=== PATIENT | female | born 1995 | race Caucasian/White ===

== ENCOUNTER 2019-07-02 09:51 | Outpatient (CLI) | payer OTHER ==
[~2019-07-02] VITALS: Ht 162.6 cm; Wt 113.7 kg
[2019-07-02 10:10] VITALS: BP 120/63
[2019-07-02] MEDS ORDERED: MAPA500T2 PO (10:29)
[2019-07-02] MEDS ORDERED: VALT1TAB PO (10:29)
[2019-07-02] MEDS ORDERED: PRENTAB9 PO (10:29)
== END 2019-07-02 11:57 | disposition home or self-care (01) ==
LOC: M LDO 09:51
PROVIDERS: ATTEND Obstetrics & Gynecology
DX: O99.89 Other specified diseases and conditions complicating pregnancy, childbirth and the puerperium (principal); R20.8 Other disturbances of skin sensation; Z3A.37 37 weeks gestation of pregnancy
CPT/HCPCS: 59025; G0378; G0463

== ENCOUNTER 2019-07-19 07:33 | Inpatient (IN) | payer OTHER ==
[~2019-07-19] VITALS: Ht 162.6 cm; Wt 115.5 kg
[2019-07-19] VITALS (20 sets, daily range): BP systolic 89–132; BP diastolic 51–86
[~2019-07-19 07:33] MED LIST: MAPA500T2 PO; PRENTAB9 PO; VALT1TAB PO
[2019-07-19] MEDS ORDERED: BICITRA 30ML SOLN UDC PO ONE ×2 (08:00→09:15)
[2019-07-19] MEDS ORDERED: LR 1,000 ML IV ONE (08:00)
[2019-07-19] MEDS ORDERED: ceFAZolin SOD 2 GM in IV 1 EA IV ONE ×2 (08:00→09:15)
[2019-07-19 08:54] LABS: HEMOGLOBIN 11.7 g/dl (12.0-15.5); MEAN CORPUSCULAR HGB CONC 34.4 g/dl (32.0-36.5); MEAN CORPUSCULAR VOLUME 87.2 fl (80.0-96.0); PLATELET COUNT, AUTOMATED 176 10^3/uL (150-450); WHITE BLOOD COUNT 6.4 10^3/uL (4.0-10.0)
[2019-07-19] MEDS: PRENATAL VITAMINS CHEWABLE TABLET PO SCH (09:00)
[2019-07-19] MEDS ORDERED: LACTATED RINGER'S 1000 ML IV STA (09:02)
[2019-07-19] MEDS ORDERED: MORPHINE PRES-FREE INJ 10 MG/10 ML VIAL (J2274) As Ordered ONE (09:11)
[2019-07-19] MEDS ORDERED: OXYTOCIN INJ 10 UNITS/ML VIAL (J2590) As Ordered ONE ×2 (09:11→09:16)
[2019-07-19] MEDS ORDERED: NALOXONE INJ 0.4 MG/1 ML VIAL (J2310) IV PRN ×2 (09:31)
[2019-07-19] MEDS ORDERED: diphenhydrAMINE INJ 50MG/ML VIAL (J1200) IV PRN (09:31)
[2019-07-19] MEDS ORDERED: METOCLOPRAMIDE INJ 10MG/2ML VIAL (J2765) IV PRN (09:31)
[2019-07-19] MEDS ORDERED: NALBUPHINE HCL 10 MG/ML AMP (J2300) IV PRN ×2 (09:31→11:15)
[2019-07-19] MEDS ORDERED: ONDANSETRON 4MG/2ML VIAL (J2405) IV PRN ×2 (09:31→11:15)
[2019-07-19] MEDS ORDERED: PHENYLephrine HCL 500 MCG/5 ML (100MCG/ML) SYRINGE (J2370) As Ordered ONE (09:37)
[2019-07-19] MEDS ORDERED: ePHEDrine SULFATE 25 MG/5 ML(5MG/ML) SYRINGE As Ordered ONE (09:39)
[2019-07-19] MEDS ORDERED: PROMETHAZINE 25 MG TAB PO PRN (11:00)
[2019-07-19] MEDS ORDERED: PERCOCET 5MG/325MG TAB PO PRN ×2 (11:00→11:15)
[2019-07-19] MEDS ORDERED: RHOGAM 300 MCG (1500 IU) INJ (J2790) IM SCH (11:00)
[2019-07-19] MEDS ORDERED: MEASLES,MUMPS,RUBELLA VACCINE INJ (MMR-II) (90707) SC SCH (11:00)
[2019-07-19] MEDS ORDERED: fentaNYL 100 MCG/2 ML INJECTION (J3010) IV PRN (11:15)
[2019-07-19] MEDS ORDERED: MEPERIDINE INJ 25 MG/ML VIAL (J2175) IV PRN (11:15)
[2019-07-19] MEDS ORDERED: KETOROLAC 30 MG/ML VIAL (J1885) IV PRN (11:15)
[2019-07-19] MEDS ORDERED: ONDANSETRON 4MG/2ML VIAL (J2405) As Ordered ONE (11:22)
[2019-07-19] MEDS ORDERED: KETOROLAC 30 MG/ML VIAL (J1885) As Ordered ONE (11:30)
[2019-07-19] MEDS: LR 1,000 ML IV SCH ×2 (13:24→21:45)
[2019-07-19] MEDS: KETOROLAC 30 MG/ML VIAL (J1885) IV SCH ×2 (16:55→23:18)
[2019-07-19] MEDS: ENOXAPARIN 60 MG/0.6 ML SYR (J1650) SC SCH (16:56)
[2019-07-20 02:00] VITALS: BP 110/57
[2019-07-20] MEDS: KETOROLAC 30 MG/ML VIAL (J1885) IV SCH (05:31)
[2019-07-20 05:50] VITALS: BP 119/60
[2019-07-20 07:36] LABS: HEMOGLOBIN 10.8 g/dl (12.0-15.5); MEAN CORPUSCULAR HEMOGLOBIN 30.2 pg (27.0-33.0); MEAN CORPUSCULAR HGB CONC 34.8 g/dl (32.0-36.5); MEAN CORPUSCULAR VOLUME 86.6 fl (80.0-96.0); PLATELET COUNT, AUTOMATED 150 10^3/uL (150-450); RED BLOOD COUNT 3.58 10^6/uL (4.00-5.40); WHITE BLOOD COUNT 7.4 10^3/uL (4.0-10.0)
[2019-07-20] MEDS: LR 1,000 ML IV SCH ×2 (07:41→13:30)
[2019-07-20] MEDS: PRENATAL VITAMINS CHEWABLE TABLET PO SCH (08:00)
--- NOTE | 2019-07-20 08:03 | IPNPDOC ---
Progress Note Date of Service: Jul 20, 2019 Progress Note Ms. Marie is a 24 yo G5 now P3 who underwent an uncomplicated, scheduled RLTCS yesterday ([id number]) at 39 weeks due to a history of two prior c sections and no desire for TOLAC. Yesterday and overnight there were no acute events. Grace reports feeling well this morning. She is sore but overall feeling OK. She is ambulating, voiding, and has minimal lochia. She had some vomiting yesterday after the surgery but this has since resolved and she feels well. She is tolerating a regular diet. Pain is controlled with current pain regimen. Vitals - VSS, afebrile, normotensive, non tachycardic General - AAOX3, sitting up in bed , NAD, pleasant and conversant Abdomen - Fundus firm at U-1. No fundal tenderness. Bandage removed from incis ion. Incision well appearing. Clean/dry/intact. Steri strips in place. No tenderness to palpation. Extremities - Minimal edema in lower extremities. UO - excellent, voiding on own. Labs: Pre op H/H 11.7/34.0 --> post op H/H this AM 10.8/31.0 Ms. Marie is doing well and is making an appropriate / postoperative recovery. Continue to encourage ambulation, IS use, and today. Continue routine care. Anticipate discharge home tomorrow. All patient questions answered. Malka Marie DO VS, I&O, 24H, Fishbone Vital Signs/I&O Vital Signs Date Time Temp Pulse Resp B/P (MAP) Pulse Ox O2 Delivery O2 Flow Rate FiO2 07/20/19 05:50 98.0 67 18 119/60 (79) 07/19/19 18:09 96 07/19/19 13:28 Room Air I&O- Last 24 Hours up to 6 AM 07/20/19 06:00 Intake Total 6151 ml Output Total 3075 ml Balance 3076 ml Laboratory Data 24H LABS Laboratory Tests 2 07/19/19 08:36: Nucleated Red Blood Cells % (auto) 0.0, Syphilis Serology NONREACTIVE 07/20/19 07:23: Nucleated Red Blood Cells % (auto) 0.0 CBC/BMP Laboratory Tests 07/19/19 08:36 07/20/19 07:23 MALKA MARIE DO Jul 20, 2019 08:03
[2019-07-20] MEDS ORDERED: ENOXAPARIN 60 MG/0.6 ML SYR (J1650) SC SCH (09:00)
[2019-07-20 10:00] VITALS: BP 133/75
[2019-07-20] MEDS: PERCOCET 5MG/325MG TAB PO PRN ×2 (10:33→17:53)
[2019-07-20] MEDS: IBUPROFEN 800 MG TAB PO SCH ×2 (13:58→21:26)
--- NOTE | 2019-07-20 15:10 | RO ---
DATE OF PROCEDURE: 07/19/2019 PREPROCEDURE DIAGNOSIS: History of section times two and obesity. POSTPROCEDURE DIAGNOSIS: History of section times two and obesity. PROCEDURE: Repeat low transverse section. SURGEON: Dr. Tim Marie PROGRAMMING DIRECTOR: Dr. Ernesto Plunkett whose assistance with exposure, retraction, and visualization was essential to completion of the case. ANESTHESIA: Spinal. FLUIDS: 1100 mL lactated Ringer's. URINE OUTPUT: 125 mL via James catheter. ESTIMATED BLOOD LOSS: 500 mL. ANTIBIOTICS: 2 grams of Ancef before skin incision. COMPLICATIONS: None. 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 Ovaries and fallopian tubes were normal bilaterally. Clear amniotic fluid. delivered in cephalic presentation, male , scores 9 and 9. weight 3860 grams. DESCRIPTION OF PROCEDURE: The risks, benefits, indications and alternatives of the procedure were reviewed with the patient and informed consent was obtained. The patient was taken to the operating room where spinal anesthesia was obtained without difficulty. She was then prepped and draped in the usual sterile fashion in the dorsal supine position with a leftward tilt. A surgical time-out was then performed in which the patient's identify and planned procedure were verified with the operative team. A Pfannenstiel skin incision was then made with a scalpel and carried through to the underlying layer of fascia using Bovie electrocautery. The fascia was extensively scarred. The fascia was then incised in the midline, and the incision was extended laterally with Roe scissors. The superior aspect of the fascial incision was grasped with Tere clamps, elevated and the underlying rectus muscles were dissected off with Roe scissors. Attention was then turned to the inferior aspect of this incision, which in a similar fashion was grasped, tented up with Tere clamps, and the rectus muscles were dissected off with Roe scissors. The rectus muscles were then at the midline. The peritoneum was identified and entered digitally. The peritoneum was extended horizontally and superiorly with good visualization of the bladder. A bladder blade was then inserted into the abdomen. The lower uterine segment was quite thin and no bladder flap was created. Next, the lower uterine segment was incised in a transverse fashion with a scalpel. The uterine incision was then extended manually. The amniotic sac was artificially ruptured and was productive of clear fluid. The was found in cephalic presentation. There was initially some difficulty delivering the baby. A Kiwi vacuum was used to attempt to facilitate delivery of the head at the flexion point, although this was unsuccessful after two pop offs. The Kiwi vacuum was discarded off the field. The difficulty with delivery was then found to be due to a very scarred and contracted superior portion of the uterus at the hysterotomy that caused a shoulder dystocia at the baby's anterior shoulder. Bandage scissors were used to extend the hysterotomy superiorly about 3 cm which released the scar. Internal maneuvers were performed, and the impacted shoulder was released. The head then delivered without difficulty. The infant cried vigorously with delivery and the nose and mouth were suctioned with a bulb syringe and the cord was doubly clamped and cut. The infant was then handed off to the awaiting pediatricians. The placenta was then removed manually. The uterus was then exteriorized and cleared of all clots and debris. The uterine incision was repaired with #0 Monocryl suture in a running locked fashion. The extension of the hysterotomy superiorly was closed with a ohdvjk-jn-bplaw suture of #0 Monocryl. Horizontal imbrication was then performed with multiple [id number]-[id number] sutures of #0 Monocryl suture. Inspection revealed excellent hemostasis. The posterior cul-de-sac was then irrigated. The uterus was then returned to the abdomen, and the hysterotomy was again inspected and found to be completely hemostatic. The paracolic gutters were then irrigated and cleared of all clots and debris. The bladder blade was then removed from the abdomen. The fascia was then closed with #0 Vicryl suture in a running fashion. The peritoneum and rectus muscles were loosely reapproximated with 3-0 vicryl suture. The subcutaneous fat was closed with #3-0 Vicryl suture in a running fashion. The skin was then closed with #4-0 Monocryl suture in a subcuticular fashion. The incision was then dressed with Steri-Strips and a pressure dressing was applied. At the completion of the case, a bimanual exam was performed, which revealed good uterine tone and minimal vaginal bleeding. The patient tolerated the procedure well. Sponge, lap, instrument, and needle counts were correct times three. The patient was taken to the recovery room in stable condition. VANDANA
[2019-07-20] MEDS: ENOXAPARIN 60 MG/0.6 ML SYR (J1650) SC SCH (17:30)
[2019-07-20 18:10] VITALS: BP 127/68
[2019-07-20] MEDS: DOCUSATE SODIUM 100 MG CAP PO SCH (21:53)
[2019-07-20 22:00] VITALS: BP 122/57
[2019-07-21 02:00] VITALS: BP 118/64
[2019-07-21] MEDS: IBUPROFEN 800 MG TAB PO SCH (05:38)
[2019-07-21 06:11] VITALS: BP 130/69
[2019-07-21] MEDS: PRENATAL VITAMINS CHEWABLE TABLET PO SCH (07:32)
[2019-07-21] MEDS: DOCUSATE SODIUM 100 MG CAP PO SCH (07:32)
--- NOTE | 2019-07-21 08:59 | IPNPDOC ---
Progress Note Date of Service: Jul 21, 2019 Day#: 2 Progress Note SUBJECT: Patient is 24 yo G5 now P3 who underwent an uncomplicated, scheduled RLTCS ([id number]) PPD #2. Patient without concerns today. She has been ambulating, voiding spontaneously without issue and tolerating regular diet. Breast feeding without issue. Spouse is due to deploy. OBJECTIVE: VITAL SIGNS: Within normal limits, afebrile. Alert and oriented times three. Abdomen: Fundus firm at U-2. Soft, NTTP. incision c/d/i. steri strip on LE: no edema/erythema/tenderness A/P: ppd #2, doing well. encouraged bf. discussed contraceptive options, patient plan on abstinence since spouse is being deployed soon. discussed post op pain management. discharge instructions. d/c home today. Le, DO VS, I&O, 24H, Fishbone Vital Signs/I&O Vital Signs Date Time Temp Pulse Resp B/P (MAP) Pulse Ox O2 Delivery O2 Flow Rate FiO2 07/21/19 06:11 98.2 79 18 130/69 (89) 07/20/19 10:00 100 Room Air I&O- Last 24 Hours up to 6 AM 07/21/19 06:00 Output Total 500 ml Balance -500 ml FANNY RAMIREZ DO Jul 21, 2019 08:59
[2019-07-21] MEDS ORDERED: SIMETHICONE 80 MG CHEW TAB PO SCH (09:00)
--- NOTE | 2019-07-21 09:00 | OBDS ---
[facility] Obstetrical Discharge Sum. Obstetrical Discharge Summary Technical Operations Vice President/Provider: MALKA MEYERS DO Date: Jul 21, 2019 : 5 Term: 3 Pre-term: 0 Abortions: 2 Livin Infant Sex: Male Infant Weight: grams (3860) Anesthesia: Regional Anesthesia A/P, Post Course List any complications Admission diagnosis: Gravid @ 39+wks gestation History of prior delivery desiring repeat Discharge diagnosis: repeat low transverse delivery Condition at Discharge: stable Discharge Instructions: Home Activity: Regular Diet: as tolerated Medications: to be picked up at [facility] Follow-up: 2 weeks Discharge Summary: Patient admitted for scheduled repeat delivery. Surgery was uncomplic ated. course uncomplicated. Patient meets discharge criteria on day #2. FANNY RAMIREZ DO Jul 21, 2019 08:45
== END 2019-07-21 12:52 | disposition home or self-care (01) | DRG 773 ==
LOC: M LDI 07:33 → EDUNIT# 09:30 → M OBS 12:03
PROVIDERS: ADMIT Obstetrics & Gynecology; ATTEND Obstetrics & Gynecology
PROC: 10D00Z1 Extraction of Products of Conception, Low, Open Approach (ICD-10-PCS; principal; 2019-07-20)
DX: O34.211 Maternal care for low transverse scar from previous cesarean delivery (principal); Z37.0 Single live birth; Z3A.39 39 weeks gestation of pregnancy; E66.9 Obesity, unspecified; O99.214 Obesity complicating childbirth

== ENCOUNTER → 2020-05-01 | Outpatient (CLI) | payer OTHER | LOC: M LABSMTC 13:51 | PROVIDERS: ATTEND Family Medicine | DX: Z20.828 Contact with and (suspected) exposure to other viral communicable diseases (principal) ==

== ENCOUNTER 2020-07-27 17:57 | Emergency (ER) | payer OTHER ==
[~2020-07-27] VITALS: Ht 162.6 cm; Wt 108.4 kg
[2020-07-27] MEDS ORDERED: BCP (18:29)
[2020-07-27] MEDS ORDERED: VITMTA PO (18:29)
[2020-07-27 20:07] LABS: BASO # 0.1 10^3/uL (0.0-0.2); EOS # 0.2 10^3/uL (0.0-0.5); EOS % 3.4 % (0.0-3.0); HEMATOCRIT 39.1 % (36.0-47.0); HEMOGLOBIN 13.6 g/dl (12.0-15.5); LYMPH # 2.4 10^3/uL (1.5-5.0); LYMPH % 34.7 % (24.0-44.0); MEAN CORPUSCULAR HEMOGLOBIN 28.1 pg (27.0-33.0); MEAN CORPUSCULAR HGB CONC 34.8 g/dl (32.0-36.5); MEAN CORPUSCULAR VOLUME 80.8 fl (80.0-96.0); MONO # 0.4 10^3/uL (0.0-0.8); MONO % 6.3 % (0.0-5.0); NEUTROPHILS # 3.8 10^3/uL (1.5-8.5); NEUTROPHILS % 54.5 % (36.0-66.0); PLATELET COUNT, AUTOMATED 256 10^3/uL (150-450); RED BLOOD COUNT 4.84 10^6/uL (4.00-5.40)
[2020-07-27 20:21] LABS: BLOOD UREA NITROGEN 10 MG/DL (7-18); C REACTIVE PROTEIN QUANTITATIV 0.91 MG/DL (0.00-0.30); CALCIUM LEVEL 9.2 MG/DL (8.5-10.1); CARBON DIOXIDE LEVEL 28 MEQ/L (21-32); CHLORIDE LEVEL 107 MEQ/L (98-107); CREATININE FOR GFR 0.83 MG/DL (0.55-1.30); GLOMERULAR FILTRATION RATE > 60.0 (>60); GLUCOSE, FASTING 103 MG/DL (70-100); SODIUM LEVEL 138 MEQ/L (136-145)
[2020-07-27] MEDS ORDERED: PSEU-52 PO (20:30)
[2020-07-27 20:32] LABS: ERYTHROCYTE SEDIMENTATION RATE 8 mm/hr (0-20)
[2020-07-27 20:39] VITALS: BP 133/87
== END 2020-07-27 20:41 | disposition home or self-care (01) ==
LOC: M ED 17:57
DX: O92.79 Other disorders of lactation (principal); J45.909 Unspecified asthma, uncomplicated; E28.2 Polycystic ovarian syndrome; Z88.5 Allergy status to narcotic agent

== ENCOUNTER 2021-05-31 09:40 | Emergency (ER) | payer OTHER ==
[~2021-05-31] VITALS: Ht 162.6 cm; Wt 111.4 kg
[~2021-05-31 09:40] MED LIST changes: +BCP; +PSEU-52 PO; +VITMTA PO
[2021-05-31 09:41] VITALS: BP 145/88
--- OUTSIDE RECORDS SUMMARY | 2021-05-31 09:45 | CCD ---
Author Author [facility] Address Unknown Phone Unavailable Support Name Relationship Address Phone UE Next Of Kin Unknown Unavailable [place] [address] Eleazar MEYERS Next Of Kin [id number] [place], [place] [id number] Re-disclosure Warning The records that you are about to access may contain information from federally-assisted alcohol or drug abuse programs. If such information is present, then the following federally mandated warning applies: This information has been disclosed to you from records protected by federal confidentiality rules (42 CFR part 2). The federal rules prohibit you from making any further disclosure of this information unless further disclosure is expressly permitted by the written consent of the person to whom it pertains or as otherwise permitted by 42 CFR part 2. A general authorization for the release of medical or other information is NOT sufficient for this purpose. The Federal rules restrict any use of the information to criminally investigate or prosecute any alcohol or drug abuse patient.The records that you are about to access may contain highly sensitive health information, the redisclosure of which is protected by Article 27-F of the [facility] Public Health law. If you continue you may have access to information: Regarding HIV / AIDS; Provided by facilities licensed or operated by the [facility] Office of Mental Health; or Provided by the [facility] Office for People With Developmental Disabilities. If such information is present, then the following [facility] mandated warning applies: This information has been disclosed to you from confidential records which are protected by state law. State law prohibits you from making any further disclosure of this information without the specific written consent of the person to whom it pertains, or as otherwise permitted by law. Any unauthorized further disclosure in violation of state law may result in a fine or custodial sentence or both. A general authorization for the release of medical or other information is NOT sufficient authorization for further disc losure. Immunizations Vaccine Date Status Description Data Source(s) COVID-19 VACCINE Pfizer 10/14/2020 12:00:00 AM EDT completed [facility] Vaccine Series Complete: NOThis Data was Submitted to [facility] Via [employer]. Medications No Information Insurance Providers Payer name Policy type / Coverage type Policy ID Covered libertarian ID Covered libertarian's relationship to redmond Policy Redmond Plan Information [facility] ACT[facility] DUTY [id number] [facility] ACT[employer] DUTY [id number] [facility] [id number] 2 [id number] U [id number] Self [id number] Problems, Conditions, and Diagnoses No Information Surgeries/Procedures No Information Results ID Date Data Source [id number] 05/01/2020 01:00:00 PM EDT [facility] Name Value Range Interpretation Code Description Data Leah rce(s) Supporting Document(s) SARS coronavirus 2 RNA [facility] This lab was ordered by [facility] and reported by [facility]. Procedure Social History No Information
[2021-05-31] MEDS ORDERED: BUPR-69 PO (09:46)
--- OUTSIDE RECORDS SUMMARY | 2021-05-31 11:17 | CCD ---
Author Author [facility] Address Unknown Phone Unavailable Support Name Relationship Address Phone UE Next Of Kin Unknown Unavailable [place] [address] Eleazar MEYERS Next Of Kin [id number] [place], [place] [id number] Re-disclosure Warning The records that you are [...] is protected by Article 27-F of the [facility] Public Health law. If you continue you may have access to information: Regarding HIV / AIDS; Provided by facilities licensed or operated by the [facility] Office of Mental Health; or Provided by the [facility] Office for People With Developmental Disabilities. If such information is present, then the following [facility] mandated warning applies: This information has been [...] Series Complete: NOThis Data was Submitted to [facility] Via [employer]. Medications No Information Insurance Providers Payer name Policy type / Coverage type Policy ID Covered republican ID Covered republican's relationship to redmond Policy Redmond Plan Information [facility] [employer] [id number] 2 [id number] [facility] [employer] [id number] 2 [id number] [facility] [id number] 2 [id number] U [id number] Self [id number] Problems, Conditions, and Diagnoses No Information Surgeries/Procedures No Information Results ID Date Data Source [id number] 05/01/2020 01:00:00 PM EDT [facility] Name Value Range Interpretation Code Description Data Leah rce(s) Supporting Document(s) SARS coronavirus 2 RNA [facility] This lab was ordered by [facility] and reported by [facility]. Procedure Social History No Information
--- NOTE | 2021-05-31 12:17 | REP ---
INDICATION: low back pain. COMPARISON: None. TECHNIQUE: Five views are provided. FINDINGS: Five views of the lumbosacral spine show no acute fracture, dislocation or subluxation. The normal lordosis is maintained. The intervertebral disc spaces are symmetric and well maintained. There is no spondylolysis or spondylolisthesis. The pedicles are intact bilaterally and there is no destructive osseous lesion. SI joints are grossly intact. Lower thoracic vertebral levels and ribs were unremarkable. IMPRESSION: Unremarkable lumbosacral spine series. <Electronically signed by King Morgan > 05/31/21 0813
[2021-05-31] MEDS ORDERED: KETOROLAC 60MG 2ML VIAL IM ONE (12:20)
[2021-05-31] MEDS ORDERED: NAPR-855 PO (13:14)
== END 2021-05-31 13:21 | disposition home or self-care (01) ==
LOC: M ED 09:40
DX: M54.50 Low back pain, unspecified (principal); E28.2 Polycystic ovarian syndrome; F43.10 Post-traumatic stress disorder, unspecified; Z79.3 Long term (current) use of hormonal contraceptives; Z79.899 Other long term (current) drug therapy; Z88.5 Allergy status to narcotic agent
CPT/HCPCS: 72110; 81001; 84702; 96372; 99282; J1885